=== PATIENT | female | born 1995 | race Caucasian/White ===

== ENCOUNTER 2017-04-25 19:16 | Emergency (ER) | payer BC ==
[2017-04-25] MEDS ORDERED: METOCLOPRAMIDE 10 MG/2 ML VIAL IVP ONE (19:21)
[2017-04-25] MEDS ORDERED: LORazepam 2 MG/ML INJ IVP ONE (19:21)
[2017-04-25] MEDS ORDERED: DEXAMETHASONE 10 MG/ML VIAL IVP ONE (19:21)
--- NOTE | 2017-04-25 19:49 | EDPHY ---
General Narrative: CHIEF COMPLAINT: Headache HISTORY OF PRESENT ILLNESS: Patient complains of migraine headache. This started approximately 1-2 hours ago. Severe, 10/10 headache. Circumferential. Similar to previous migraine headaches but more severe. Nausea and photophobia. Some phonophobia. No neck pain or stiffness. No chest pain or shortness of breath. She feels very anxious about this. He has a history of migraines and has Topamax and Excedrin at home. She is not taking these. No other associated complaints or modifying factors. Arrives by EMS and is seen at time of arrival in no acute distress. REVIEW OF SYSTEMS: Ten systems reviewed and are negative unless otherwise noted in the HPI PAST MEDICAL HISTORY: Migraine headache PAST SURGICAL HISTORY: Denies SOCIAL HISTORY: Nonsmoker. Occasional medical marijuana use. No alcohol. Lives here locally. FAMILY HISTORY: Noncontributory EXAMINATION General Appearance: Alert, no distress. Crying but consolable. Head: normocephalic, atraumatic Eyes: Pupils equal and round, no conjunctival pallor or injection. EOMs intact. No nystagmus or dysconjugate gaze ENT, Mouth: Mucous membranes moist Neck: Normal inspection, supple, non-tender. Painless range of motion all planes. No meningismus or rigidity. Respiratory: Lungs are clear to auscultation Cardiovascular: Tachycardic rate and regular rhythm. No murmur Gastrointestinal: Abdomen is soft and nontender Back: non-tender, no bony abnormalities Neurological: GCS 15. A&O, nonfocal, strength symmetric in all 4 limbs. Skin: Warm and dry, no rash Extremities: Nontender, no pedal edema Psychiatric: Mood and affect normal DIFFERENTIAL DIAGNOSES: Including but not limited to migraine headache, subarachnoid hemorrhage, subdural hemorrhage, seizure, meningitis, meningismus MDM: 7:23 p.m. Migraine headache that is circumferential and similar to her previous in the past. This is more severe than previous headaches. She is anxious and crying but consolable. Vital signs are stable with mild tachycardia. I have ordered Decadron, Reglan, Benadryl and Ativan. No seizure-like activity. I do not feel she warrants any emergent imaging at this time. 8:15 p.m. I have re-evaluated the patient. She is feeling significantly better at this time. Headache is rated as mild now. She remains awake alert no acute distress. No longer crying. No acute distress. She is feeling much better would like to be discharged home. I do not feel she warrants any imaging at this time as she has near resolution of symptoms and the headache was consistent with her previous migraines but she also has no meningismus or signs of infection. She does have a mild leukocytosis but no meningismus or rigidity. - Objective Vital Signs: Initial Vital Signs Temperature (C) 98.6 F 04/25/17 19:21 Heart Rate 112 H 04/25/17 19:21 Respiratory Rate 20 04/25/17 19:21 Blood Pressure 130/85 H 04/25/17 19:21 O2 Sat (%) 99 04/25/17 19:21 O2 Delivery Mode Room Air Allergies/Adverse Reactions: cat dander Allergy (Verified 04/25/17 19:20) Home Medications: Medication Instructions Recorded Codeine/Butalbit/Acetamin/Caff 1 each PO Q6 PRN #12 capsule 04/25/17 [Fioricet-Cod 57-38-605-40 Cap] busPIRone 04/25/17 Laboratory Results: Laboratory Results 04/25/17 20:20 04/25/17 20:20 04/25/17 04/25/17 04/25/17 20:20 20:20 20:20 WBC 14.25 10^3/uL H 10^3/uL (3.80-9.50) RBC 5.06 10^6/uL 10^6/uL (4.18-5.33) Hgb 14.9 g/dL g/dL (12.6-16.3) Hct 44.8 % % (38.0-47.0) MCV 88.5 fL fL (81.5-99.8) MCH 29.4 pg pg (27.9-34.1) MCHC 33.3 g/dL g/dL (32.4-36.7) RDW 12.8 % % (11.5-15.2) Plt Count 344 10^3/uL 10^3/uL (150-400) MPV 10.5 fL fL (8.7-11.7) Neut % (Auto) 84.4 % H % (39.3-74.2) Lymph % (Auto) 8.3 % L % (15.0-45.0) [place] % (Auto) 6.4 % % (4.5-13.0) Eos % (Auto) 0.1 % L % (0.6-7.6) Baso % (Auto) 0.4 % % (0.3-1.7) Nucleat RBC Rel Count 0.0 % % (0.0-0.2) Absolute Neuts (auto) 12.05 10^3/uL H 10^3/uL (1.70-6.50) Absolute Lymphs (auto) 1.18 10^3/uL 10^3/uL (1.00-3.00) Absolute Monos (auto) 0.91 10^3/uL H 10^3/uL (0.30-0.80) Absolute Eos (auto) 0.01 10^3/uL L 10^3/uL (0.03-0.40) Absolute Basos (auto) 0.05 10^3/uL 10^3/uL (0.02-0.10) Absolute Nucleated RBC 0.00 10^3/uL 10^3/uL (0-0.01) Immature Gran % 0.4 % % (0.0-1.1) Immature Gran # 0.05 10^3/uL 10^3/uL (0.00-0.10) Sodium 137 mEq/L mEq/L (134-144) Potassium 3.9 mEq/L mEq/L (3.5-5.2) Chloride 100 mEq/L mEq/L (97-110) Carbon Dioxide 19 mEq/l L mEq/l (22-31) Anion Gap 18 mEq/L H mEq/L (8-16) BUN 8 mg/dL mg/dL (7-23) Creatinine 0.8 mg/dL mg/dL (0.6-1.0) Estimated GFR > 60 Glucose 96 mg/dL mg/dL (70-100) Calcium 9.9 mg/dL mg/dL (8.5-10.4) Beta HCG, Qual NEGATIVE Medications Given: Discontinued Medications Dexamethasone (Decadron Injection) 10 mg IVP EDNOW ONE Stop: 04/25/17 19:22 Last Admin: 04/25/17 19:50 Dose: 10 mg Diphenhydramine HCl (Benadryl Injection) 25 mg IVP EDNOW ONE Stop: 04/25/17 19:22 Last Admin: 04/25/17 19:48 Dose: 25 mg Lorazepam (Ativan Injection) 1 mg IVP EDNOW ONE Stop: 04/25/17 19:22 Last Admin: 04/25/17 19:46 Dose: 1 mg Metoclopramide HCl (Reglan Injection) 10 mg IVP EDNOW ONE Stop: 04/25/17 19:22 Last Admin: 04/25/17 19:54 Dose: 10 mg Departure - Departure Disposition: Home, Routine, Self-Care Clinical Impression: Headache Qualifiers: Headache type: unspecified Headache chronicity pattern: acute headache Intractability: not intractable Qualified Code(s): R51 - Headache Migraine Qualifiers: Migraine type: without aura Status migrainosus presence: without status migrainosus Intractability: not intractable Qualified Code(s): G43.009 - Migraine without aura, not intractable, without status migrainosus Condition: Good Instructions: Migraine Headache (ED) Additional Instructions: 1. Continue Benadryl or a nonsedating antihistamine [id number] dosing for the next 2-3 days 2. Fioricet as prescribed as needed 3. Follow up with primary care physician in the next 1-2 days 4. ED precautions for worsening headache, sudden change in headache, neck pain or stiffness, fever Referrals: Patient,NotPresent [Unknown] - As per Instructions Chanel Milligan MD [[facility] [place] Primary Care Provider] - As per Instructions Stand Alone Forms: School Excuse, Work Excuse Prescriptions: Codeine/Butalbit/Acetamin/Caff [Fioricet-Cod 73-20-135-40 Cap] 1 each PO Q6 PRN #12 capsule PRN Reason: Headache
[2017-04-25 20:21] VITALS: RESP 15
[2017-04-25 20:26] LABS: % IMMATURE GRANULYOCYTES 0.4 % (0.0-1.1); ABSOLUTE IMMATURE GRANULOCYTES 0.05 10^3/uL (0.00-0.10); ADD DIFF? NO; ADD MORPH? NO; ADD SCAN? NO; ATYPICAL LYMPHOCYTE FLAG 10 (0-99); FRAGMENT RBC FLAG 0 (0-99); HEMATOCRIT 44.8 % (38.0-47.0); HEMOGLOBIN 14.9 g/dL (12.6-16.3); LEFT SHIFT FLG 0 (0-99); LIPEMIA HEMOLYSIS FLAG 80 (0-99); MEAN CELL HEMOGLOBIN 29.4 pg (27.9-34.1); MEAN CELL HEMOGLOBIN CONCENTR. 33.3 g/dL (32.4-36.7); MEAN CELL VOLUME 88.5 fL (81.5-99.8); MEAN PLATELET VOLUME 10.5 fL (8.7-11.7); PLATELET CLUMPS FLAG 0 (0-99); PLATELET COUNT 344 10^3/uL (150-400); RED BLOOD CELL COUNT 5.06 10^6/uL (4.18-5.33); RED CELL DISTRIBUTION WIDTH 12.8 % (11.5-15.2)
[2017-04-25 20:38] LABS: ANION GAP 18 mEq/L (8-16); CALCIUM 9.9 mg/dL (8.5-10.4); CARBON DIOXIDE 19 mEq/l (22-31); CHLORIDE 100 mEq/L (97-110); CREATININE 0.8 mg/dL (0.6-1.0); GLOMERULAR FILTRATION RATE > 60; GLUCOSE 96 mg/dL (70-100); POTASSIUM 3.9 mEq/L (3.5-5.2); SODIUM 137 mEq/L (134-144)
[2017-04-25 21:14] VITALS: BP 92/50; PULSE 99; TEMP 99.5; O2SAT 95
== END 2017-04-25 21:13 | disposition home or self-care (01) ==
DX: G43.009 Migraine without aura, not intractable, without status migrainosus (principal)
CPT/HCPCS: 96374; J1100; J1200; J2060; J2765

== ENCOUNTER 2017-05-18 20:39 | Emergency (ER) | payer BC ==
--- NOTE | 2017-05-18 21:31 | EDPHY ---
H & P Stated Complaint: migraine HPI/ROS: CHIEF COMPLAINT: Migraine HISTORY OF PRESENT ILLNESS: The patient is a 21 y/o female, with a history of migraines, arriving with her boyfriend complaining of a severe migraine onset a couple hours ago. She gets migraines like this weekly and required an ED visit on 04/25, about 3 weeks ago, for treatment. Her symptoms today are exactly the same. She was recently prescribed sumatriptan and took some today, but then vomited it up. Her headache is located diffusely and associated with photophobia and nausea. No fever, neck stiffness, numbness, or weakness. REVIEW OF SYSTEMS: A ten point review of systems was performed and is negative with the exception of the items mentioned in the HPI. Past medical history: Migraines Past surgical history: Denies Family history: Noncontributory Social history: From [place], lives here. [employer] student. Employed. Reviewed ED visit from 04/25/17 for same symptoms. General Appearance: Alert. Vital signs reviewed. Eyes: Pupils equal and round, no conjunctival injection, no discharge. Anicteric. ENT, Mouth: Mucous membranes are moist, no oropharyngeal erythema or edema. Neck: No lymphadenopathy, supple. Respiratory: Lungs are clear to auscultation; no wheezes, rales, or rhonchi. Cardiovascular: Regular rate and rhythm; no murmur, rub, or gallop. Gastrointestinal: Abdomen is soft and nontender, no masses or organomegaly, bowel sounds normal. Skin: Warm and dry, no rashes on exposed skin, normal color. Back: Nontender to palpation over the thoracolumbar spine. No CVAT. Extremities: No lower extremity edema, no calf tenderness or swelling. Neurological: Alert and oriented. Moving all four extremities easily and equally. Cranial nerves II through XII are examined and are intact (visual acuity not tested). Strength is 5 over 5 bilaterally with testing of all major motor groups. Sensation is intact to light touch over all 4 extremities. Deep tendon reflexes are 2+ in the biceps and knees bilaterally. [id number] is performed accurately. Psychiatric: Normal affect. - Personal History LMP (Females 10-55): Now - Medical/Surgical History Hx Asthma: No Hx Chronic Respiratory Disease: No Hx Diabetes: No Hx Cardiac Disease: No Hx Renal Disease: No Hx Cirrhosis: No Hx Alcoholism: No Hx HIV/AIDS: No Hx Splenectomy or Spleen Trauma: No Other PMH: PMHx: JANG, anxiety. PSHx: denies - Social History Smoking Status: Never smoked Constitutional: Initial Vital Signs Temperature (C) 36.7 C 05/18/17 20:44 Heart Rate 71 05/18/17 20:44 Respiratory Rate 16 05/18/17 20:44 Blood Pressure 111/82 H 05/18/17 20:44 O2 Sat (%) 95 05/18/17 20:44 O2 Delivery Mode Room Air Allergies/Adverse Reactions: cat dander Allergy (Verified 04/25/17 19:20) Home Medications: Medication Instructions Recorded busPIRone 04/25/17 Citalopram 05/18/17 TOPIRAMATE 05/18/17 traZODone 05/18/17 Medical Decision Making ED Course/Re-evaluation: IV established. 10mg IV Reglan, 8mg IV Decadron, 15mg IV Toradol, 25mg IV Benadryl, and 1L IV NS administered for symptoms. 10:05 p.m.: She is sleeping. 11:00 PM: Feeling much better, well enough to go home. Differential Diagnosis: Headache including but not limited to subarachnoid hemorrhage, migraine headache , tension headache and infectious causes such as meningitis, pharyngitis and sinusitis. - Data Points Medications Given: Discontinued Medications Dexamethasone (Decadron Injection) 8 mg IVP EDNOW ONE Stop: 05/18/17 21:38 Last Admin: 05/18/17 21:53 Dose: 8 mg Diphenhydramine HCl (Benadryl Injection) 25 mg IVP EDNOW ONE Stop: 05/18/17 21:39 Last Admin: 05/18/17 21:52 Dose: 25 mg Sodium Chloride (Ns) 1,000 mls @ 3,000 mls/hr IV EDNOW ONE Stop: 05/18/17 21:56 Last Admin: 05/18/17 21:50 Dose: 1,000 mls Ketorolac Tromethamine (Toradol) 15 mg IVP/IM EDNOW ONE Stop: 05/18/17 21:38 Last Admin: 05/18/17 21:51 Dose: 15 mg Metoclopramide HCl (Reglan Injection) 10 mg IVP EDNOW ONE Stop: 05/18/17 21:38 Last Admin: 05/18/17 21:56 Dose: 10 mg Departure - Departure Disposition: Home, Routine, Self-Care Clinical Impression: Migraine Qualifiers: Migraine type: without aura Status migrainosus presence: without status migrainosus Intractability: not intractable Qualified Code(s): G43.009 - Migraine without aura, not intractable, without status migrainosus Condition: Good Instructions: Migraine Headache (ED) Additional Instructions: Follow up with Dr. Calhoun, neurologist, in the next week to discuss management of your migraines. Follow up with [facility] to establish primary care in the area. Return to the ED for worsening of condition. Referrals: [facility] [Other] - As per Instructions Juan Calhoun MD [Medical Doctor] - As per Instructions [facility] [Clinic] - As per Instructions Stand Alone Forms: School Excuse Report Scribed for: Yolanda Saleh Report Scribed by: Devorah Thompson Date of Report: 05/18/17 Time of Report: 21:39 Physician Review and Approval Statement: 05/18/17 21:31 Portions of this note were transcribed by the medical records tech. I, Dr. Yolanda Saleh, personally performed the history, physical exam, and medical decision- making; and confirmed the accuracy of the information in the transcribed note.
[2017-05-18] MEDS ORDERED: METOCLOPRAMIDE 10 MG/2 ML VIAL IVP ONE (21:37)
[2017-05-18] MEDS ORDERED: NS 1,000 ML IV ONE (21:37)
[2017-05-18] MEDS ORDERED: DEXAMETHASONE 4 MG/ML VIAL IVP ONE (21:37)
[2017-05-18] MEDS ORDERED: KETOROLAC 15 MG/1 ML SDV IVP/IM ONE (21:37)
[2017-05-19 00:15] VITALS: BP 96/62; PULSE 76; RESP 16; TEMP 98.6; O2SAT 97
== END 2017-05-19 00:12 | disposition home or self-care (01) ==
DX: G43.009 Migraine without aura, not intractable, without status migrainosus (principal); R11.10 Vomiting, unspecified
CPT/HCPCS: 96374; J1100; J1200; J1885; J2765

== ENCOUNTER → 2018-05-02 | Outpatient (CLI) | payer BC | LOC: FIMAGING 16:21 | PROVIDERS: ATTEND Family Medicine | DX: J40 Bronchitis, not specified as acute or chronic (principal) ==

== ENCOUNTER 2018-12-28 17:13 | Emergency (ER) | payer BC ==
[2018-12-28 17:19] VITALS: BP 98/63
--- NOTE | 2018-12-28 17:21 | EDPHY ---
H & P Stated Complaint: SOB/COUGH/BODY ACHES X 4 DAYS FEELS "FAINT" Time Seen by Provider: 12/28/18 17:20 HPI/ROS: CHIEF COMPLAINT: Dyspnea and cough HISTORY OF PRESENT ILLNESS: The patient presents the ED with a 4 day history of dyspnea and a nonproductive cough. The patient was seen at urgent care and sent to the emergency department for concerns about a possible PE. The patient has no prior history of PE or DVT. She denies any asymmetric calf pain or swelling. The patient denies significant past medical history. She reports mild to moderate dyspnea. REVIEW OF SYSTEMS: A comprehensive 10 point review of systems is otherwise negative aside from elements mentioned in the history of present illness. Source: Patient - Personal History LMP (Females 10-55): 8-14 Days Ago Current Tetanus Diphtheria and Acellular Pertussis (TDAP): Yes - Medical/Surgical History Hx Asthma: No Hx Chronic Respiratory Disease: No Hx Diabetes: No Hx Cardiac Disease: No Hx Renal Disease: No Hx Cirrhosis: No Hx Alcoholism: No Hx HIV/AIDS: No Hx Splenectomy or Spleen Trauma: No Other PMH: PMHx: JANG, anxiety. PSHx: denies - Social History Smoking Status: Never smoked - Physical Exam Exam: General Appearance: Alert, no distress Eyes: Pupils equal and round no pallor or injection ENT, Mouth: Mucous membranes moist Respiratory: There are no retractions, lungs are clear to auscultation Cardiovascular: Regular rate and rhythm Gastrointestinal: Abdomen is soft and nontender, no masses, bowel sounds normal Neurological: 5/5 strength all 4 extremities Skin: Warm and dry, no rashes Musculoskeletal: Neck is supple nontender Extremities: symmetrical, full range of motion Constitutional: Initial Vital Signs Temperature (C) 36.9 C 12/28/18 17:16 Heart Rate 106 H 12/28/18 17:16 Respiratory Rate 17 12/28/18 17:16 Blood Pressure 98/63 L 12/28/18 17:16 O2 Sat (%) 97 12/28/18 17:16 O2 Delivery Mode Room Air Allergies/Adverse Reactions: cat dander Allergy (Verified 12/28/18 17:16) Home Medications: Medication Instructions Recorded busPIRone 04/25/17 Citalopram 05/18/17 TOPIRAMATE 05/18/17 traZODone 05/18/17 Albuterol [Ventolin Hfa Inhaler] 2 puffs IH QID PRN #1 chante 12/28/18 Medical Decision Making - Diagnostics Imaging Results: Imaging Impressions Chest X-Ray 12/28/18 17:25 Impression: No acute cardiopulmonary process. Chest x-ray PA/lateral: Images interpreted by myself. Impression negative for acute disease. ED Course/Re-evaluation: Patient presents the ED with a dry cough and dyspnea for the past several days. Her chest x-ray demonstrates no evidence of pneumonia. She is on control pills. The patient's D-dimer is negative which I feel adequately excludes pulmonary embolism. The patient will be given a prescription for an albuterol inhaler. She is advised to use Tylenol and ibuprofen. She will be discharged home with customary aftercare instructions and return precautions. Differential Diagnosis: Differential diagnosis considered includes asthma, bronchitis, pneumonia, pulmonary embolism - Data Points Laboratory Results: Laboratory Results 12/28/18 17:25 12/28/18 17:30 12/28/18 12/28/18 12/28/18 17:30 17:30 17:25 WBC 23.11 10^3/uL H 10^3/uL (3.80-9.50) RBC 5.19 10^6/uL 10^6/uL (4.18-5.33) Hgb 15.1 g/dL g/dL (12.6-16.3) Hct 45.9 % % (38.0-47.0) MCV 88.4 fL fL (81.5-99.8) MCH 29.1 pg pg (27.9-34.1) MCHC 32.9 g/dL g/dL (32.4-36.7) RDW 13.0 % % (11.5-15.2) Plt Count 346 10^3/uL 10^3/uL (150-400) MPV 9.5 fL fL (8.7-11.7) Neut % (Auto) 87.0 % H % (39.3-74.2) Lymph % (Auto) 7.6 % L % (15.0-45.0) [place] % (Auto) 4.4 % L % (4.5-13.0) Eos % (Auto) 0.2 % L % (0.6-7.6) Baso % (Auto) 0.3 % % (0.3-1.7) Nucleat RBC Rel Count 0.0 % % (0.0-0.2) Absolute Neuts (auto) 20.14 10^3/uL H 10^3/uL (1.70-6.50) Absolute Lymphs (auto) 1.75 10^3/uL 10^3/uL (1.00-3.00) Absolute Monos (auto) 1.01 10^3/uL H 10^3/uL (0.30-0.80) Absolute Eos (auto) 0.04 10^3/uL 10^3/uL (0.03-0.40) Absolute Basos (auto) 0.06 10^3/uL 10^3/uL (0.02-0.10) Absolute Nucleated RBC 0.00 10^3/uL 10^3/uL (0-0.01) Immature Gran % 0.5 % % (0.0-1.1) Immature Gran # 0.11 10^3/uL H 10^3/uL (0.00-0.10) D-Dimer 0.37 ug/mLFEU ug/mLFEU (0.00-0.50) Sodium 139 mEq/L mEq/L (135-145) Potassium 3.4 mEq/L L mEq/L (3.5-5.2) Chloride 107 mEq/L mEq/L (97-110) Carbon Dioxide 21 mEq/l L mEq/l (22-31) Anion Gap 11 mEq/L mEq/L (6-14) BUN 9 mg/dL mg/dL (7-23) Creatinine 0.9 mg/dL mg/dL (0.6-1.0) Estimated GFR > 60 Glucose 69 mg/dL L mg/dL (70-100) Calcium 9.5 mg/dL mg/dL (8.5-10.4) Departure - Departure Disposition: Home, Routine, Self-Care Clinical Impression: Bronchitis Acute bronchitis Qualifiers: Bronchitis organism: unspecified organism Qualified Code(s): J20.9 - Acute bronchitis, unspecified Condition: Good Instructions: Acute Bronchitis (ED) Additional Instructions: 1. Your x-ray demonstrates no evidence of pneumonia on your laboratory testing demonstrates no evidence of a blood clot. 2. Please use inhaler as needed for cough. 3. Tylenol and ibuprofen as needed for fever and chills. 4. Return to the ED for markedly worsening symptoms or other concerns. Referrals: [facility],. [Clinic] - As per Instructions Prescriptions: Albuterol [Ventolin Hfa Inhaler] 2 puffs IH QID PRN #1 mdi PRN Reason: for shortness of breath
[2018-12-28 17:44] LABS: PLATELET COUNT 346 10^3/uL (150-400)
== END 2018-12-28 18:18 | disposition home or self-care (01) ==
DX: J20.9 Acute bronchitis, unspecified (principal)